=== PATIENT | male | born 1980 | race Two or more races ===

== ENCOUNTER 2017-10-20 17:31 | Emergency (ER) | payer SELFPAY ==
[~2017-10-20] VITALS: Ht 172.7 cm; Wt 90.7 kg
[2017-10-20 17:43] VITALS: BP 155/97
== END 2017-10-20 22:21 | disposition left against medical advice (07) ==
LOC: ER 17:33
DX: R06.02 Shortness of breath (principal); Z53.21 Procedure and treatment not carried out due to patient leaving prior to being seen by health care provider

== ENCOUNTER 2021-11-21 17:59 | Emergency (ER) | payer OTHER | END 2021-11-21 19:06 | disposition left against medical advice (07) | LOC: ER 17:59 | DX: R10.9 Unspecified abdominal pain (principal); R11.2 Nausea with vomiting, unspecified; R19.7 Diarrhea, unspecified; Z53.21 Procedure and treatment not carried out due to patient leaving prior to being seen by health care provider ==